=== PATIENT | female | born 1960 | race Hispanic/Latino ===

== ENCOUNTER 2020-11-15 13:51 | Emergency (ER) | payer OTHER ==
[2020-11-15 15:02] VITALS: BP 132/77
--- NOTE | 2020-11-15 15:43 | Emergency Department Report ---
ED General Adult HPI - General Chief complaint: Extremity Problem,Nontraumatic Stated complaint: NEEDS ULTRSOUND Time Seen by Provider: 11/15/20 15:09 Source: patient Mode of arrival: Ambulatory Limitations: No Limitations - History of Present Illness Initial comments: 60-year-old female patient with history of diabetes and thyroid disease presents with complaints of left leg pain x1 week. Patient states her pain began when she fell trying to run to the bus stop. She states she has been taking ibuprofen without improvement in her symptoms. The pain goes from her mid thigh down to her ankle. She denies any loss of sensation, swelling, skin changes, or decreased range of motion. Patient states she was seen at an urgent care on Friday and referred to the ED for ultrasound to rule out a blood clot. She denies any history of DVT/PE/cancer, recent long travel/surgeries, cough, hemoptysis, shortness of breath, chest pain, or hormone use. - Related Data Previous Rx's Medication Instructions Recorded Last Taken Type Acetaminophen 1,000 mg PO TID #30 capsule 11/15/20 Unknown Rx Naproxen 500 mg PO BID PRN #20 tablet 11/15/20 Unknown Rx Allergies Allergy/AdvReac Type Severity Reaction Status Date / Time metoclopramide [From Reglan] Allergy Itching Verified 11/15/20 14:55 Penicillins Allergy Rash Verified 11/15/20 14:55 sulfamethoxazole Allergy Rash Verified 11/15/20 14:56 [From Bactrim] trimethoprim [From Bactrim] Allergy Rash Verified 11/15/20 14:56 ED Review of Systems ROS: Stated complaint: NEEDS ULTRSOUND Other details as noted in HPI Constitutional: denies: diaphoresis, fever, malaise, weakness Respiratory: denies: cough, shortness of breath Cardiovascular: denies: chest pain Musculoskeletal: denies: joint swelling Skin: denies: change in color Neurological: denies: numbness, paresthesias, abnormal gait ED Past Medical Hx - Past Medical History Previous Medical History?: Yes Hx Hypertension: Yes - Surgical History Past Surgical History?: No - Medications Home Medications: Home Medications Medication Instructions Recorded Confirmed Last Taken Type Acetaminophen 1,000 mg PO TID #30 capsule 11/15/20 Unknown Rx Naproxen 500 mg PO BID PRN #20 tablet 11/15/20 Unknown Rx ED Physical Exam - General Limitations: No Limitations General appearance: alert, in no apparent distress - Head Head exam: Present: atraumatic, normocephalic - Eye Eye exam: Present: normal appearance - Respiratory Respiratory exam: Absent: respiratory distress - Cardiovascular Cardiovascular Exam: Present: regular rate - Extremities Exam Extremities exam: Present: full ROM, calf tenderness (Mild tenderness to palpation of the left lower calf and posterior thigh noted without swelling or skin changes), other (Normal left pedal pulse noted and sensation and range of motion of the left leg and ankle). Absent: pedal edema - Neurological Exam Neurological exam: Present: alert, oriented X3 - Psychiatric Psychiatric exam: Present: normal affect, normal mood - Skin Skin exam: Present: warm, dry, intact, normal color. Absent: rash ED Course Vital Signs 11/15/20 15:01 Temperature 97.5 F L Pulse Rate 88 Respiratory 18 Rate Blood Pressure 132/77 [Left] O2 Sat by Pulse 100 Oximetry ED Medical Decision Making - Radiology Data Radiology results: report reviewed DUPLEX DOPPLER LOWER EXTREMITY VEINS, LEFT INDICATION / CLINICAL INFORMATION: Left leg pain and swelling. TECHNIQUE: Duplex doppler imaging was performed through the veins of the left lower extremity using venous compression and other maneuvers. COMPARISON: None available. FINDINGS: LEFT COMMON FEMORAL VEIN: Negative. LEFT FEMORAL VEIN: Negative. LEFT POPLITEAL VEIN: Negative. LEFT CALF VEINS: Negative. ADDITIONAL FINDINGS: There is a 1.7 cm popliteal cyst without internal blood flow on Doppler exam. IMPRESSION: 1. No sonographic evidence for DVT in the left lower extremity. 2. 1.7 cm left popliteal cyst. - Medical Decision Making 60-year-old female patient with history of diabetes and thyroid disease presents with complaints of left leg pain x1 week. Patient states her pain began when she fell trying to run to the bus stop. She states she has been taking ibuprofen without improvement in her symptoms. The pain goes from her mid thigh down to her ankle. She denies any loss of sensation, swelling, skin changes, or decreased range of motion. Patient states she was seen at an urgent care on Friday and referred to the ED for ultrasound to rule out a blood clot. She denies any history of DVT/PE/cancer, recent long travel/surgeries, cough, hemoptysis, shortness of breath, chest pain, or hormone use. Ultrasound is negative for any DVT, however does show a popliteal cyst. Patient placed in Tung wrap. Recommend follow-up with orthopedics for further evaluation and treatment. She is well-appearing and stable for discharge home. Strict return precautions discussed in detail patient who verbalizes understanding. Critical care attestation.: If time is entered above; I have spent that time in minutes in the direct care of this critically ill patient, excluding procedure time. ED Disposition Clinical Impression: Synovial cyst of popliteal space [Stewart], left knee Disposition: HOME / SELF CARE / HOMELESS Is pt being admited?: No Condition: Stable Instructions: Stewart Cyst Prescriptions: Acetaminophen 1,000 mg PO TID #30 capsule Naproxen 500 mg PO BID PRN #20 tablet PRN Reason: pain Referrals: [facility] [Provider Group] - 3-5 Days
--- NOTE | 2020-11-15 16:00 | Vascular Lab Report ---
DUPLEX DOPPLER LOWER EXTREMITY VEINS, LEFT INDICATION / CLINICAL INFORMATION: Left leg pain and swelling. TECHNIQUE: Duplex doppler imaging was performed through the veins of the left lower extremity using venous compr ession and other maneuvers. COMPARISON: None available. FINDINGS: LEFT COMMON FEMORAL VEIN: Negative. LEFT FEMORAL VEIN: Negative. LEFT POPLITEAL VEIN: Negative. LEFT CALF VEINS: Negative. ADDITIONAL FINDINGS: There is a 1.7 cm popliteal cyst without internal blood flow on Doppler exam. IMPRESSION: 1. No sonographic evidence for DVT in the left lower extremity. 2. 1.7 cm left popliteal cyst. Signer Name: John Carrasquillo MD Signed: 11/15/2020 3:56 PM Workstation Name: [id number]
== END 2020-11-15 19:09 | disposition home or self-care (01) ==
LOC: ED 13:51
DX: M71.22 Synovial cyst of popliteal space [Baker], left knee (principal); I10 Essential (primary) hypertension; Z88.0 Allergy status to penicillin; Z88.8 Allergy status to other drugs, medicaments and biological substances; Z88.2 Allergy status to sulfonamides
CPT/HCPCS: 99283